=== PATIENT | female | born 1980 | race African-American/Black ===

== ENCOUNTER 2020-12-28 06:26 | Emergency (ER) | payer OTHER ==
[~2020-12-28] VITALS: Ht 177.8 cm; Wt 104.3 kg
[2020-12-28] MEDS ORDERED: ALIVE WOMEN'S1 EAC1 PO (06:41)
[2020-12-28 07:07] LABS: URINE BILIRUBIN NEGATIVE (Negative); URINE BLOOD NEGATIVE (Negative); URINE CLARITY CLEAR; URINE COLOR YELLOW; URINE GLUCOSE-RANDOM* 3+ (Negative); URINE KETONES NEGATIVE (Negative); URINE LEUKOCYTES-REFLEX NEGATIVE (Negative); URINE NITRITE-REFLEX NEGATIVE (Negative); URINE PROTEIN (DIPSTICK) TRACE (Negative); URINE UROBILINOGEN 0.2 E.U./dl (0.2-1.0)
[2020-12-28] MEDS ORDERED: DIFLUCAN150 MG PO (10:05)
[2020-12-28 10:13] VITALS: BP 153/106
== END 2020-12-28 10:20 | disposition home or self-care (01) ==
LOC: ER 06:26
PROVIDERS: Student in an Organized Health Care Education/Training Program
DX: B37.9 Candidiasis, unspecified (principal); Z98.890 Other specified postprocedural states; Z79.899 Other long term (current) drug therapy; Z91.013 Allergy to seafood